=== PATIENT | female | born 1960 | race Caucasian/White ===

== ENCOUNTER → 2022-09-10 | Emergency (ER) | payer OTHER ==
[~2022-09-10] MED LIST: ACETAMINOPHEN 1000 MG/100 ML BAG IVPB ONE
[2022-09-10 16:26] VITALS: BMI 37.2
[2022-09-10 19:18] LABS: PH,URINE 5.5 (5.0-8.0); URINE APPEARANCE CLEAR; URINE BILIRUBIN NEGATIVE (NEGATIVE); URINE COLOR YELLOW; URINE GLUCOSE (UA) NEGATIVE (NEGATIVE); URINE KETONE TRACE (NEGATIVE); URINE LEUK ESTERASE NEGATIVE (NEGATIVE); URINE NITRITE NEGATIVE (NEGATIVE); URINE PROTEIN NEGATIVE (NEGATIVE); URINE UROBILINOGEN 0.2 mg/dL (0.2-1.0)
[2022-09-10 19:40] VITALS: RESP 18
[2022-09-11 01:22] VITALS: BP 147/75; PULSE 90; TEMP 98.8
== END | disposition short-term general hospital (02) ==
LOC: JER 15:53
DX: S01.21XA Laceration without foreign body of nose, initial encounter (principal); W19.XXXA Unspecified fall, initial encounter; Z20.822 Contact with and (suspected) exposure to COVID-19
CPT/HCPCS: 0241U-QW; 70450-TC; 70486-TC; 71045-TC-FY; 72125-TC; 72128-TC; 72131-TC; 73521-TC-FY; 81003; 99285-25